=== PATIENT | male | born 1975 | race Caucasian/White ===

== ENCOUNTER → 2016-10-19 | Outpatient (CLI) | payer BC ==
[2016-10-22 02:37] LABS: LDL CHOLESTEROL,CALCULATED 108.2 (66-159); RISK FACTOR 5.2 RATIO (0-5.0); VLDL CHOLESTEROL 25.8 MG/DL (0-28)
== END ==
LOC: LAB 10:21
PROVIDERS: ATTEND Family Medicine
DX: E78.5 Hyperlipidemia, unspecified (principal)
CPT/HCPCS: 80061